=== PATIENT | female | born 1970 | race Hispanic/Latino ===

== ENCOUNTER → 2019-06-12 | Outpatient (CLI) | payer BC ==
[~2019-06-12] MED LIST: CLARINEX; SINGULAIR
--- NOTE | 2019-06-12 12:01 | Diagnostic Imaging Report ---
MRI of the left foot without contrast. History: Foot pain. Plantar fasciitis. Decreased range of motion. Hip pain Technique: Multiplanar multisequence MRI of the foot without contrast Comparison: None Findings: Thickening and mid substance degeneration/low-grade partial tearing involving the medial cord of the plantar fascia at the inferior calcaneal insertion site with associated mild bone marrow edema and soft tissue edema. No tear or retraction. Small inferior calcaneal bone spur. The Achilles tendon is intact. No acute fracture, subluxation or avascular necrosis. Scattered degenerative change. No osseous erosion. The remainder of the visualized ligaments and tendons are intact. The visualized muscles are normal in size, signal intensity and morphology. The visualized neurovascular bundles are intact. No talar dome osteochondral lesion. Impression: Thickening and mid substance degeneration/low-grade partial tearing involving the medial cord of the plantar fascia at the inferior calcaneal insertion site with associated mild bone marrow edema and soft tissue edema. No tear or retraction. Small inferior calcaneal bone spur. Signed by: Dr. Telly Burleson M.D. on 06/12/2019 11:58 AM
== END ==
LOC: MRI 10:36
PROVIDERS: ATTEND Podiatrist
DX: M72.2 Plantar fascial fibromatosis (principal)

== ENCOUNTER 2019-09-11 23:21 | Emergency (ER) | payer BC ==
[~2019-09-11] VITALS: Ht 152.4 cm; Wt 63.5 kg
--- OUTSIDE RECORDS SUMMARY | 2019-09-11 23:24 | XMS REPORT ---
Author Author [facility] Address Unknown Phone Unavailable Care Team Providers Care Manufacturing Assembler Name Role Phone Janette NAVA Unavailable Unavailable Problems This patient has no known problems. Allergies, Adverse Reactions, Alerts This patient has no known allergies or adverse reactions. Medications This patient has no known medications. Encounters Start Date/Time End Date/Time Encounter Type Admission Type Attending Clinicians Care Facility Care Department Encounter ID 2017-09-23 08:28:34 2017-09-23 08:28:34 Emergency [facility] [id number] Results Test Description Test Time Test Comments Text Results Atomic Results Result Comments MRI FOOT LEFT WO 2019-06-12 11:55:00 [place] [address] Patient Name: KHADIJAH PAPPAS MR #: [id number] : 1970 Age/Sex: 48/F Req #: [id number] Adm Physician: Ordered by: SANDRA NAVA DP Report #: [id number] Location: MRI Room/Bed: Procedure: [id number] MRI/MRI FOOT LEFT WO Exam Date: Exam Time: REPORT STATUS: Signed MRI of the left foot without contrast. History: Foot pain. Plantar fasciitis. Decreased range of motion. Hip pain Technique: Multiplanar multisequence MRI of the foot without contrast Comparison: None Findings: Thickening and mid substance degeneration/low-grade partial tearing involving the medial cord of the plantar fascia at the inferior calcaneal insertion site with associated mild bone marrow edema and soft tissue edema. No tear or retraction. Small inferior calcaneal bone spur. The Achilles tendon is intact. No acute fracture, subluxation or avascular necrosis. Scattered degenerative change. No osseous erosion. The remainder of the visualized ligaments and tendons are intact. The visualized muscles are normal in size, signal intensity and morphology. The visualized neurovascular bundles are intact. No talar dome osteochondral lesion. Impression: Thickening and mid substance degeneration/low-grade partial tearing involving the medial cord of the plantar fascia at the inferior calcaneal insertion site with associated mild bone marrow edema and soft tissue edema. No tear or retraction. Small inferior calcaneal bone spur. Signed by: Dr. Telly Burleson M.D. on 06/12/2019 11:58 AM Dictated By: TELLY BURLESON MD, MD [id number] Transcribed By: LESLIE on 06/12/19 [id number] COPY TO: SANDRA NAVA DPM
[2019-09-11] MEDS ORDERED: KETOROLAC TROMETHAMINE 60 MG/2 ML VIAL ONE (23:43)
[2019-09-11] MEDS ORDERED: KETOROLAC TROMETHAMINE 60 MG/2 ML VIAL IM ONE (23:45)
[2019-09-11] MEDS ORDERED: ORPHENADRINE CITRATE 30 MG/ML VIAL IM ONE (23:45)
[2019-09-12 00:17] VITALS: BP 135/85
== END 2019-09-12 00:30 | disposition home or self-care (01) ==
LOC: ER 23:21
DX: S16.1XXA Strain of muscle, fascia and tendon at neck level, initial encounter (principal); R51 Headache; M54.9 Dorsalgia, unspecified; G89.29 Other chronic pain
CPT/HCPCS: 96372; 99283; J1885; J2360

== ENCOUNTER → 2020-07-17 | Outpatient (CLI) | payer OTHER ==
[~2020-07-17] MED LIST changes: +COVID-19 VACC, MRNA(MODERNA)/PF 100 MCG/0.5 ML VIAL IM ONE
== END ==
LOC: VACCPMC 09:00
DX: Z23 Encounter for immunization (principal); Z20.822 Contact with and (suspected) exposure to COVID-19

== ENCOUNTER → 2020-08-11 | Outpatient (CLI) | payer OTHER | END | DRG 951 | LOC: VACCPMC 10:51 | DX: Z23 Encounter for immunization (principal); Z20.822 Contact with and (suspected) exposure to COVID-19 | CPT/HCPCS: 0012A; 91301 ==

== ENCOUNTER → 2021-05-07 | Outpatient (CLI) | payer OTHER | LOC: VACCPMC 07:39 | DX: Z23 Encounter for immunization (principal); Z20.822 Contact with and (suspected) exposure to COVID-19 | CPT/HCPCS: 91301 ==

== ENCOUNTER 2022-01-13 07:06 | Emergency (ER) | payer BC, OTHER ==
[~2022-01-13] VITALS: Ht 152.4 cm; Wt 64.9 kg
[~2022-01-13 07:06] MED LIST changes: -COVID-19 VACC, MRNA(MODERNA)/PF 100 MCG/0.5 ML VIAL IM ONE
[2022-01-13] MEDS ORDERED: MECLIZINE HCL 12.5 MG TAB PO ONE (08:00)
[2022-01-13] MEDS ORDERED: ONDANSETRON HCL 4 MG ORAL DISINTEGRATING TAB PO ONE (08:00)
[2022-01-13] MEDS ORDERED: MECLIZINE HCL 12.5 MG TAB ONE (08:15)
[2022-01-13] MEDS ORDERED: MECLIZINE HCL12.5 MG PO (08:41)
[2022-01-13] MEDS ORDERED: CEFDINIR300 MG PO (08:41)
[2022-01-13] MEDS ORDERED: ONDANSETRON HCL4 MG PO (08:41)
== END 2022-01-13 08:56 | disposition home or self-care (01) ==
LOC: FSED 07:55
DX: H81.12 Benign paroxysmal vertigo, left ear (principal); H83.02 Labyrinthitis, left ear; M54.9 Dorsalgia, unspecified; G89.29 Other chronic pain
CPT/HCPCS: 99283; J8597; Q0162

== ENCOUNTER 2024-12-30 06:05 | Emergency (ER) | payer BC, OTHER ==
[~2024-12-30] VITALS: Ht 152.4 cm; Wt 64.9 kg
[~2024-12-30 06:05] MED LIST changes: +CEFDINIR300 MG PO; +MECLIZINE HCL12.5 MG PO; +MECLIZINE HCL25 MG PO; +ONDANSETRON HCL4 MG PO; +PROMETHAZINE12.5 M1 PO
[2024-12-30] MEDS: ACETAMINOPHEN 325 MG TAB PO ONE (07:27)
[2024-12-30] MEDS: SODIUM CHLORIDE 0.9% 1000ML 1,000 ML IV STA (07:28)
[2024-12-30] MEDS: KETOROLAC TROMETHAMINE 30 MG/ML VIAL IV STA (07:28)
[2024-12-30] MEDS: ONDANSETRON HCL INJ 2MG/ML 2ML 2 MG/ML VIAL IV ONE (07:28)
[2024-12-30] MEDS ORDERED: MOTRIN800 MG PO (08:40)
[2024-12-30] MEDS ORDERED: ZANAFLEX4 MG PO (08:40)
[2024-12-30] MEDS ORDERED: TYLENOL325 MG PO (08:40)
[2024-12-30] MEDS: DEXAMETHASONE SOD PHOS INJ 4 MG/ML SDV IV ONE (08:47)
[2024-12-30 08:56] VITALS: PULSE 95; RESP 16; TEMP 97.9; O2SAT 100
== END 2024-12-30 08:56 | disposition home or self-care (01) ==
LOC: FSED 06:26
DX: M25.552 Pain in left hip (principal); M25.551 Pain in right hip; M54.50 Low back pain, unspecified; M12.88 Other specific arthropathies, not elsewhere classified, other specified site
CPT/HCPCS: 74176; 81003; 96374; 96375; 99284; J1100; J1885; J2405; J7030